=== PATIENT | female | born 1950 | race American Indian/Alaskan Native ===

== ENCOUNTER 2016-12-02 20:45 | Emergency (ER) | payer OTHER, MEDICARE ==
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
[2016-12-03 03:43] VITALS: BP 161/101
[2016-12-03] MEDS ORDERED: TORADOL IM ONE (03:46)
== END 2016-12-03 04:26 | disposition home or self-care (01) ==
LOC: ED 20:45
DX: R07.89 Other chest pain (principal); I10 Essential (primary) hypertension; V89.2XXA Person injured in unspecified motor-vehicle accident, traffic, initial encounter; Y93.89 Activity, other specified; Y92.89 Other specified places as the place of occurrence of the external cause; Y99.8 Other external cause status
CPT/HCPCS: 36415; 84484; 93005; 93010; 96372; 99283; J1885